=== PATIENT | female | born 1960 | race Caucasian/White ===

== ENCOUNTER 2017-01-13 19:08 | Emergency (ER) | payer OTHER ==
[2017-01-13 19:16] VITALS: BP 131/82
--- NOTE | 2017-01-13 20:23 | ED Physician Documentation ---
PD HPI BACK INJURY - Stated complaint Stated Complaint: back pain - History obtained from History obtained from: Patient - History of Present Illness Location: Left, Lower Type of injury: Twist (she tripped over a bag and almost fell, with twist of low back and pain left SI area.) Where injury occurred: Work Timing - onset: Today Timing - duration: Hours Timing - details: Abrupt onset Quality: Pain, Spasm Worsened by: Moving Associated symptoms: No: Fever, Weakness, Numbness, Incontinent of urine Contributing factors: Prior back surgery Recently seen: Not recently seen Review of Systems Constitutional: denies: Fever, Chills Skin: denies: Rash, Lesions Neurologic: denies: Focal weakness, Numbness PD PAST MEDICAL HISTORY - Past Medical History Neuro: None Musculoskeletal: Other (prior back fusion for spondylolisthesis) - Present Medications Home Medications: Ambulatory Orders Medication Instructions Recorded Confirmed Methocarbamol [Robaxin] 500 mg PO Q6H PRN #20 tablet 01/13/17 Tramadol HCl 50 mg PO Q6H PRN #20 tablet 01/13/17 - Allergies Allergies/Adverse Reactions: Allergies Allergy/AdvReac Type Severity Reaction Status Date / Time morphine Allergy Itching Verified 01/13/17 19:12 sulfaguanidine Allergy Hives Verified 01/13/17 19:12 PD ED PE NORMAL - Vitals Vital signs reviewed: Yes - General General: Alert and oriented X 3, No acute distress, Well developed/nourished - Abdomen Abdomen: Soft, Non tender - Back Back: No CVA TTP, No spinal TTP, Other (tender more at left SI joint than vertebral) - Derm Derm: Normal color, Warm and dry - Extremities Extremities: No tenderness to palpate, Normal ROM s pain, No edema, No calf tenderness / cord - Neuro Neuro: No motor deficit, No sensory deficit Results - Vitals Vitals: Oxygen O2 Source Room air - Rads (name of study) lumbar xray Radiology: Prelim report reviewed (prior surgical changes; no acute process) PD MEDICAL DECISION MAKING - ED course Complexity details: considered differential, d/w patient Departure - Departure Disposition: 01 Home, Self Care Clinical Impression: Fall from slip, trip, or stumble Qualifiers: Encounter type: initial encounter Qualified Code(s): W01.0XXA - Fall on same level from slipping, tripping and stumbling without subsequent striking against object, initial encounter Low back strain Qualifiers: Encounter type: initial encounter Qualified Code(s): S39.012A - Strain of muscle, fascia and tendon of lower back, initial encounter Condition: Stable Record reviewed to determine appropriate education?: Yes Instructions: ED Sprain Strain Lumbar Prescriptions: Methocarbamol [Robaxin] 500 mg PO Q6H PRN #20 tablet PRN Reason: Spasms Tramadol HCl 50 mg PO Q6H PRN #20 tablet PRN Reason: Pain Comments: Heat and gentle stretching. Ibuprofen 3 times daily. Add tylenol or tramadol as needed for pains. Can also use methocarbamol for spasms. Recheck if not improved over the next 3-5 days. Forms: Activity restrictions Discharge Date/Time: 01/13/17 21:15
[2017-01-13] MEDS ORDERED: IBUPROFEN 600 MG TABLET PO STA (20:44)
[2017-01-13] MEDS ORDERED: ACETAMINOPHEN 325 MG TABLET PO STA (20:44)
[2017-01-13] MEDS ORDERED: IBUPROFEN 600 MG TABLET PO ONE (20:47)
[2017-01-13] MEDS ORDERED: ACETAMINOPHEN 325 MG TABLET PO ONE (20:47)
[2017-01-13] MEDS ORDERED: HYDROcod/ACET 5/325 Prepack 6 PO ONE ×2 (20:50→20:59)
--- NOTE | 2017-01-13 21:43 | XRAY Preliminary Report ---
Exam: XR Lumbar Spine 2 View IMPRESSION: Patient has undergone L5-S1 fusion. There is approximate 2.5 cm anterolisthesis of L5 on S1. Comparison with prior imaging would be useful to assess stability of this finding. No plain film evidence of acute fracture. [facility] SITE ID: [id number]
--- NOTE | 2017-01-13 21:45 | XRAY Report ---
EXAM: LUMBOSACRAL SPINE RADIOGRAPHY EXAM DATE: 01/13/2017 09:06 PM. CLINICAL HISTORY: Low back pain after fall to hands and knees. COMPARISONS: None. TECHNIQUE: 3 views. FINDINGS: There are fusion screws at the L5-S1 level. There is approximately 2.5 cm anterolisthesis o f L5 on S1. No evidence of acute fracture. The visualized pelvis is unremarkable. No significant soft tissue abnormalities are seen. IMPRESSION: Patient has undergone L5-S1 fusion. There is approximate 2.5 cm anterolisthesis of L5 on S1. Comparison with prior imaging would be useful to assess stability of this finding. No plain film evidence of acute fracture. [facility] Referring Provider Line: [phone] SITE ID: [id number]
== END 2017-01-13 21:15 | disposition home or self-care (01) ==
LOC: ED 19:08
DX: S39.012A Strain of muscle, fascia and tendon of lower back, initial encounter (principal); W01.0XXA Fall on same level from slipping, tripping and stumbling without subsequent striking against object, initial encounter; Y92.89 Other specified places as the place of occurrence of the external cause; Y99.0 Civilian activity done for income or pay
CPT/HCPCS: 72100; 99282; 99283; A9270; 1040M

== ENCOUNTER 2017-09-19 11:13 | Outpatient (CLI) | payer MEDICAID ==
[2017-09-19 19:06] LABS: BASOPHILS % (AUTO) 0.5 %; EOSINOPHILS # (AUTO) 0.2 10^3/uL (0.0-0.7); EOSINOPHILS % (AUTO) 2.8 %; HGB - HEMOGLOBIN 12.9 g/dL (12.0-16.0); LYMPHOCYTES # (AUTO) 1.7 10^3/uL (1.5-3.5); LYMPHOCYTES % (AUTO) 30.3 %; MEAN CORPUSCULAR HEMOGLOBIN 30.3 pg (27.0-31.0); MEAN CORPUSCULAR HGB CONC 32.3 g/dL (32.0-36.0); MEAN CORPUSCULAR VOLUME 93.7 fL (81.0-99.0); MEAN PLATELET VOLUME 7.5 fL (7.9-10.8); MONOCYTES # (AUTO) 0.4 10^3/uL (0.0-1.0); MONOCYTES % (AUTO) 7.3 %; NEUTROPHILS # (AUTO) 3.3 10^3/uL (1.5-6.6); NEUTROPHILS % (AUTO) 59.1 %; PLT - PLATELET COUNT 192 10^3/uL (130-450); RED BLOOD COUNT 4.25 10^6/uL (4.20-5.40); RED CELL DISTRIBUTION WIDTH 13.4 % (12.0-15.0); WHITE BLOOD COUNT 5.7 x10^3/uL (4.8-10.8)
[2017-09-19 19:41] LABS: ALBUMIN 4.3 g/dL (3.2-5.5); ALBUMIN/GLOBULIN RATIO 1.5 (1.0-2.2); ALKALINE PHOSPHATASE 47 IU/L (42-121); ALT ALANINE AMINOTRANSFERASE 23 IU/L (10-60); AST ASPARTATE AMINOTRANSFERASE 24 IU/L (10-42); BILIRUBIN,TOTAL 0.3 mg/dL (0.2-1.0); BUN - BLOOD UREA NITROGEN 14 mg/dL (6-20); CALCIUM 9.5 mg/dL (8.5-10.3); CARBON DIOXIDE - CO2 26 mmol/L (21-32); CHLORIDE 101 mmol/L (101-111); CHOL/HDL RATIO 4.5 (<4.4); CHOLESTEROL 340 mg/dL; CREATININE 0.5 mg/dL (0.4-1.0); GFR - MDRD 127 (>89); GLUCOSE 93 mg/dL (70-100); HDL CHOLESTEROL 76 mg/dL; LDL CHOLESTEROL,CALCULATED 239 mg/dL; LDL/HDL RATIO 3.1 (<4.4); SODIUM 139 mmol/L (135-145); TOTAL PROTEIN 7.1 g/dL (6.7-8.2); VLDL CHOLESTEROL 25 mg/dL
== END 2017-09-19 11:14 | disposition home or self-care (01) ==
LOC: LAB.N 11:13
PROVIDERS: ATTEND Nurse Practitioner Gerontology
DX: E78.5 Hyperlipidemia, unspecified (principal); Z13.9 Encounter for screening, unspecified
CPT/HCPCS: 36415; 80053; 80061; 83721; 84443; 85025

== ENCOUNTER 2017-11-28 14:44 | Outpatient (CLI) | payer MEDICAID ==
--- NOTE | 2017-11-29 14:59 | Mammography Report ---
DIGITAL SCREENING MAMMOGRAM: 11/28/2017 CLINICAL INDICATION: A 57-year-old for screening. COMPARISON: 12/2010, 04/2009. TECHNIQUE: Routine CC and MLO projections were obtained of the breasts. FINDINGS: Parenchymal tissue within the breasts is predominantly fatty replaced. There are no dominant masses, suspicious microcalcifications, or secondary signs of malignancy. In comparison to the previous studies, there are no significant changes. IMPRESSION: NO MAMMOGRAPHIC EVIDENCE OF MALIGNANCY. NO SIGNIFICANT INTERVAL CHANGES. RECOMMENDATION: Screening mammography is recommended annually. BIRADS CATEGORY 1 - NEGATIVE. STANDARD QUALIFYING STATEMENTS: 1. This examination was reviewed with the aid of Computed-Aided Detection (CAD). 2. A negative or benign imaging report should not delay biopsy if clinically suspicious findings are present. Consider surgical consultation if warranted. More than 5% of cancers are not identified by imaging. 3. Dense breasts may obscure an underlying neoplasm. TD: 11/29/2017 14:34
== END 2017-11-28 14:45 | disposition home or self-care (01) ==
LOC: DI.N 14:44
PROVIDERS: ATTEND Nurse Practitioner Gerontology
DX: Z12.31 Encounter for screening mammogram for malignant neoplasm of breast (principal)
CPT/HCPCS: 77067